=== PATIENT | male | born 1950 | race Two or more races ===

== ENCOUNTER 2019-05-05 19:58 | Emergency (ER) | payer SELFPAY ==
[~2019-05-05] VITALS: Ht 175.3 cm; Wt 59.0 kg
--- NOTE | 2019-05-05 20:10 | NUR ---
PT [id number] COMPLAINING OF BLOOD IN URINE, PT HAS FONSECA CATHETER. PT STATES THAT HIS FONSECA IS "LEAKING." PT AXO4. RESPIRATIONS EVEN AND UNLABORED. PENDING EVAL FROM DEV [facility]AN[facility]. Addendum: 05/05/19 at 2030 by MARILYN PT STATES THE REASON FOR HIS FONSECA IS BECAUSE HE HAS BEEN "RETAINING WATER".
--- NOTE | 2019-05-05 20:42 | NUR ---
URINE SAMPLE COLLECTED AND SENT TO LAB.
[2019-05-05 20:44] LABS: APPEARANCE,URINE Slightly Cloudy (CLEAR); BILIRUBIN,URINE Negative (NEGATIVE); BLOOD, URINE Large Ery/uL (NEGATIVE); COLOR,URINE Red (YELLOW); KETONES,URINE Negative (NEGATIVE); LEUKOCYTE ESTERASE ,URINE Small (NEGATIVE); NITRITE, URINE Negative (NEGATIVE); PH,URINE 7.5 (5.0-8.0); PROTEIN,URINE >=300 mg/dl (NEGATIVE); UGLUCOSE 100 MG/DL mg/dL (NEGATIVE); UROBILINOGEN,URINE 0.2 EU/dL (0.2)
[2019-05-05 20:48] LABS: RBC,URINE TOO NUMEROUS TO COUN /HPF (0-2)
[2019-05-05 20:49] LABS: BACTERIA,URINE Rare /HPF (None Seen); SQUAMOUS EPITHELIAL CELL,UR Rare /HPF (None Seen); URINE AMORPHOUS PHOSPHATES Few /HPF (None Seen)
--- NOTE | 2019-05-05 21:26 | NUR ---
Patient given written and verbal discharge instructions. Patient verbalizes understanding of instructions. Patient is ambulatory with steady gait. Refuses offer of jail placement. Patient given list of available shelters in surrounding area.
--- NOTE | 2019-05-05 21:26 | NUR ---
Uli downs in ED - 05/05/19 at 2128 by MARILYN Patient discharged to home in stable condition. Written and verbal after care instructions given. Patient verbalizes understanding of instruction. PT AMBULATORY WITH STEADY GAIT.
[2019-05-05 21:27] VITALS: BP 127/88
== END 2019-05-05 21:28 | disposition home or self-care (01) ==
LOC: ER 20:00
DX: T83.018A Breakdown (mechanical) of other urinary catheter, initial encounter (principal); R31.9 Hematuria, unspecified; I10 Essential (primary) hypertension; Z85.46 Personal history of malignant neoplasm of prostate; Z98.890 Other specified postprocedural states; Z88.8 Allergy status to other drugs, medicaments and biological substances
CPT/HCPCS: 81000-TC; 87086-TC

== ENCOUNTER 2019-09-06 13:36 | Inpatient (IN) | payer MEDICAID ==
[~2019-09-06] VITALS: Ht 175.3 cm; Wt 60.8 kg
--- NOTE | 2019-09-06 14:05 | NUR ---
RN OPENING NOTES PT BROUGHT IN BY AMBULANCE. PT IS A POOR HISTORIAN. PT STATING HIS RIGHT KNEE IS HURTING AND WOULD LIKE SOME WATER. PT HAS A FONSECA STATES HE HAD IT PUT IN WHEN HE WENT TO [facility]. PT HAS A LEFT AV SHUNT. PT HAS AN 18 GAUGE RIGHT AC. WILL CONTINUE TO MONITOR.
[2019-09-06] MEDS ORDERED: Z GUARD REMEDY 2 OZ OINT TP PRN (14:30)
[2019-09-06] MEDS ORDERED: MAGNESIUM HYDROXIDE 30 ML UDC PO PRN (14:30)
[2019-09-06] MEDS ORDERED: ZOLPIDEM TARTRATE 5 MG TABLET PO PRN (14:30)
[2019-09-06] MEDS ORDERED: MAG HYDROX/AL HYDROX/SIMETH 30 ML UDC PO PRN (14:30)
[2019-09-06] MEDS ORDERED: ACETAMINOPHEN 325 MG TABLET PO PRN (14:30)
[2019-09-06] MEDS ORDERED: HYDROCODONE/APAP 5/325MG 1 EACH TABLET PO PRN (14:30)
[2019-09-06] MEDS ORDERED: ONDANSETRON HCL/PF 4 MG/2 ML VIAL IVP PRN (14:30)
[2019-09-06 14:55] VITALS: BP 155/90
[2019-09-06 15:48] LABS: BASOPHILS % (AUTO) 0.8 % (0.0-2.0); EOSINOPHILS % (AUTO) 2.2 % (0.0-6.0); HEMATOCRIT 39 % (39-51); HEMOGLOBIN 12.4 g/dL (13.5-17.5); LYMPHOCYTES % (AUTO) 32.2 % (20.0-44.0); MEAN CORPUSCULAR HGB CONC 32 g/dl (31.0-36.0); MEAN CORPUSCULAR VOLUME 97 fL (80-96); MONOCYTES # (AUTO) 0.7 /CMM (0.1-1.30); MONOCYTES % (AUTO) 10.2 % (2.0-12.0); NEUTROPHILS # (AUTO) 3.5 /CMM (1.8-8.9); NEUTROPHILS % (AUTO) 54.6 % (43.0-81.0); PLATELET COUNT (AUTO) 165 /CMM (150-450); RED BLOOD CELL COUNT(AUTO) 4.05 MIL/uL (4.5-6.0); WHITE BLOOD COUNT (AUTO) 6.3 K/uL (4.3-11.0)
[2019-09-06 16:00] VITALS: BP 140/68
[2019-09-06] MEDS ORDERED: OLAN20TA3 PO (16:42)
[2019-09-06 16:49] LABS: ALANINE AMINOTRANSFERASE 14 U/L (12-78); ALBUMIN 3.5 g/dL (3.4-5.0); ALKALINE PHOSPHATASE 336 U/L (46-116); ASPARTATE AMINOTRANSFERASE 51 U/L (15-37); BILIRUBIN,TOTAL 0.3 mg/dL (0.2-1.0); CALCIUM, SERUM 7.9 mg/dL (8.5-10.1); CARBON DIOXIDE 13 mmol/L (21-32); CHLORIDE 111 mmol/L (98-107); CREATININE 7.3 mg/dL (0.6-1.3); GLUCOSE 89 mg/dL (74-106); POTASSIUM 4.7 mmol/L (3.5-5.1); SODIUM SERUM 139 mmol/L (136-145); TOTAL PROTEIN, SERUM 7.6 g/dL (6.4-8.2)
[2019-09-06 17:11] LABS: UREA NITROGEN, BLOOD 82 mg/dL (7-18)
--- NOTE | 2019-09-06 19:01 | NUR ---
PT LEFT AMA. SIGNED PAPERWORK AND REMOVED IV HIMSELF. PT WALKED OUT OF UNIT. PT WAS EXPLAINED THE RISKS OF LEAVING AMA.HE STATED THAT WE WERE NOT DOING ANYTHING FOR HIM AND IS LEAVING NOW.
== END 2019-09-06 18:49 | disposition left against medical advice (07) | DRG 203 ==
LOC: TELE1 13:36
PROVIDERS: ADMIT Student in an Organized Health Care Education/Training Program; ATTEND Student in an Organized Health Care Education/Training Program
PROC: 5A1D70Z Performance of Urinary Filtration, Intermittent, Less than 6 Hours Per Day (ICD-10-PCS; principal; 2019-09-06)
DX: M94.0 Chondrocostal junction syndrome [Tietze] (principal); I12.0 Hypertensive chronic kidney disease with stage 5 chronic kidney disease or end stage renal disease; N18.6 End stage renal disease; F17.210 Nicotine dependence, cigarettes, uncomplicated; Z59.0 Homelessness; Z99.2 Dependence on renal dialysis; Z91.19 Patient's noncompliance with other medical treatment and regimen; M25.561 Pain in right knee; R33.9 Retention of urine, unspecified
CPT/HCPCS: 36415; 80053-TC; 84484-TC; 85025-TC; 93307-TC; G0378

== ENCOUNTER 2019-11-17 01:38 | Inpatient (IN) | payer MEDICAID ==
[~2019-11-17] VITALS: Ht 172.7 cm; Wt 68.9 kg
[~2019-11-17 01:38] MED LIST: OLAN20TA3 PO
--- NOTE | 2019-11-17 12:10 | NUR ---
RN ADMITTING NOTES ADMITTED A 69 YEARS OLD, M, TO UNIT VIA GURNEY ACCOMPANIED BY 2 AMBULANCE STAFF. A/O X4. ABLE TO MAKE NEEDS KNOWN. NO COMPLAIN OF PAIN OR DISCOMFORT AT THIS TIME. PATIENT ORIENTED TO UNIT, ROOM AND STAFF. ON ROOM AIR, BREATHING EVEN AND UNLABORED. V/S TAKEN AND RECORDED. PHYSICAL ASSESSMENT WAS DONE AND PICTURES FILED ON CHART. LUNGS CLEAR ON AUSCULTATION. IV ACCESS ON R HAND #20 AND RIGHT FA# 22, PATENT AND INTACT. FONSECA CATHETER IN PLACE, DRAINING CLEAR YELLOW URINE. AV SHUNT ON REN WITH (+) BRUIT AND THRILL. SAFETY MEASURES IN PLACE, BED PLACED IN LOWEST LOCKED POSITION WITH SIDE RAILS UP X2. CALL LIGHT PLACED WITHIN EASY REACH. WILL CONTINUE TO MONITOR.
[2019-11-17 16:00] VITALS: BP 152/86
--- NOTE | 2019-11-17 16:00 | NUR ---
RN NOTES DIALYSIS: RECEIVED A CALL FROM [facility] THAT THEY WERE ABLE TO FIND PATIENT A CHAIR FOR DIALYSIS. IT IS ON [address]. [place]: [id number] [place], [id number]. [phone]. WEDNESDAY, WEDNESDAY AND WEDNESDAY. FIRST APPOINTMENT IS ON Wednesday11/20/19. PATIENT NEEDS TO BE THERE @03:00 AM.
--- NOTE | 2019-11-17 18:00 | NUR ---
RN NOTES DIALYSIS NURSE ON UNIT AND ABOUT TO DO HD ON THE ROOM, CONSENT SIGNED, NO SIGNS OF DISTRESS NOTED. WILL CONTINUE TO MONITOR.
[2019-11-17 18:27] LABS: BASOPHILS % (AUTO) 0.8 % (0.0-2.0); EOSINOPHILS % (AUTO) 1.6 % (0.0-6.0); HEMATOCRIT 23 % (39-51); HEMOGLOBIN 7.4 g/dL (13.5-17.5); LYMPHOCYTES # (AUTO) 1.5 /CMM (0.8-4.8); LYMPHOCYTES % (AUTO) 26.9 % (20.0-44.0); MEAN CORPUSCULAR HGB CONC 33 g/dl (31.0-36.0); MEAN CORPUSCULAR VOLUME 93 fL (80-96); MONOCYTES # (AUTO) 0.6 /CMM (0.1-1.30); MONOCYTES % (AUTO) 11.2 % (2.0-12.0); NEUTROPHILS # (AUTO) 3.2 /CMM (1.8-8.9); NEUTROPHILS % (AUTO) 59.5 % (43.0-81.0); PLATELET COUNT (AUTO) 321 /CMM (150-450); RED BLOOD CELL COUNT(AUTO) 2.44 MIL/uL (4.5-6.0); WHITE BLOOD COUNT (AUTO) 5.4 K/uL (4.3-11.0)
--- NOTE | 2019-11-17 18:36 | NUR ---
RN CLOSING NOTES PATIENT IN BED RESTING COMFORTABLY IN MODERATE HIGH BACK REST. A/O X4. DIALYSIS NURSE WITH PATIENT DOING HD. AV SHUNT ON REN. NO SIGNS OF DISTRESS NOTED. IV ACCESS ON RIGHT HAND #20 AND RIGHT JESSICA #22, SL. SAFETY MEASURES IN PLACE, BED IN LOWEST LOCKED POSITION WITH SIDE RAILS UP X2. CALL LIGHT WITHIN REACH. WILL ENDORSE TO TOBACCO WRAPPING MACHINE TENDER NURSE FOR THEODORE. Addendum: 11/17/19 at 2313 by RONNIE TOLLIVER RN HAS F/C INTACT, DRAINING CLEAR YELLOW FLUID
[2019-11-17 18:47] LABS: CALCIUM, SERUM 6.3 mg/dL (8.5-10.1); CREATININE 6.9 mg/dL (0.6-1.3); POTASSIUM 5.9 mmol/L (3.5-5.1)
--- NOTE | 2019-11-17 19:20 | NUR ---
RN OPEN NOTES RECEIVED PATIENT AWAKE IN BED WITH HD NURSE AT BEDSIDE. A/OX4. NO SIGNS OF DISTRESS OR DISCOMFORT. BREATHING EVEN AND UNLABORED. ON TELE MONITOR WITH SR 88 NOTED. IV ACCESS IN R HAND AND RFA, PATENT AND INTACT, NO SIGNS OF REDNESS OR INFILTRATION. HAS REN AV SHUNT, PT CURRENTLY RECEIVING HD. BED IN LOW LOCKED POSITION WITH SIDE RAILS X2. CALL LIGHT WITHIN REACH. WILL CONTINUE TO MONITOR. Addendum: 11/17/19 at 2313 by RONNIE TOLLIVER RN HAS F/C INTACT, DRAINING CLEAR YELLOW FLUID
[2019-11-17 20:00] VITALS: BP 163/90
[2019-11-17] MEDS ORDERED: TEMAZEPAM 15 MG CAPSULE PO PRN (21:00)
[2019-11-17] MEDS ORDERED: MAGNESIUM HYDROXIDE 30 ML UDC PO PRN (21:00)
[2019-11-17] MEDS ORDERED: HYDROCODONE/APAP 5/325MG 1 EACH TABLET PO PRN (21:00)
[2019-11-17] MEDS ORDERED: MORPHINE SULFATE INJ 2 MG/ML DISP.SYRIN IV PRN (21:00)
[2019-11-17] MEDS ORDERED: ONDANSETRON HCL/PF 4 MG/2 ML VIAL IVP PRN (21:00)
[2019-11-17] MEDS ORDERED: MAG HYDROX/AL HYDROX/SIMETH 30 ML UDC PO PRN (21:00)
[2019-11-17] MEDS ORDERED: ACETAMINOPHEN 325 MG TABLET PO PRN (21:00)
[2019-11-17] MEDS ORDERED: Z GUARD REMEDY 2 OZ OINT TP PRN (21:00)
--- NOTE | 2019-11-17 21:05 | NUR ---
RN NOTES HD DONE WITH NO COMPLICATIONS. REN DRESSING C/D/I. BP 169/90 P90. PER HD NURSE 2.5L OUTPUT. WILL CONTINUE TO MONITOR.
[2019-11-17] MEDS ORDERED: SEVE800T8 PO (21:54)
[2019-11-17] MEDS ORDERED: METO25TA6 PO (21:54)
[2019-11-17] MEDS ORDERED: CELE100C PO (21:54)
[2019-11-17] MEDS ORDERED: DEXTROSE 50%-WATER 50 ML DISP.SYRIN IV PRN (22:00)
[2019-11-17] MEDS: INSULIN REGULAR, HUMAN 100 UNIT/ML 3 ML VIAL SQ PRN (22:54)
[2019-11-17] MEDS: BLOOD SUGAR DIAGNOSTIC 1 EACH STRIP IN SCH (22:54)
[2019-11-17] MEDS: OLANZAPINE 10 MG TABLET PO SCH (22:54)
[2019-11-18] VITALS: BP 125/64
[2019-11-18 04:00] VITALS: BP 164/86
[2019-11-18] MEDS: BLOOD SUGAR DIAGNOSTIC 1 EACH STRIP IN SCH ×4 (06:34→21:39)
--- NOTE | 2019-11-18 06:56 | NUR ---
RN CLOSING NOTES PATIENT RESTING COMFORTABLY IN BED, EASILY AROUSABLE. A/OX3. NO SIGNS OF DISTRESS OR DISCOMFORT. BREATHING EVEN AND UNLABORED. ON TELE MONITOR WITH SR 97 NOTED. IV ACCESS IN R HAND AND RFA, PATENT AND INTACT, NO SIGNS OF REDNESS OR INFILTRATION. HAS REN AV SHUNT + BRUIT AND THRILL DRESSING C/D/I. ALL NEEDS MET. NO SIGNIFICANT CHANGES THROUGH THE NIGHT. BED IN LOW LOCKED POSITION WITH SIDE RAILS X2. CALL LIGHT WITHIN REACH. WILL ENDORSE TO AM SHIFT FOR THE[place]ORE. Addendum: 11/18/19 at 0708 by RONNIE TOLLIVER RN HAS F/C INTACT DRAINING CLEAR YELLOW FLUID.
--- NOTE | 2019-11-18 07:36 | NUR ---
RN OPENING NOTES RECEIVED PATIENT IN BED RESTING COMFORTABLY IN MODERATE HIGH BACK REST, EASILY AROUSABLE. A/OX3. NO SIGNS OF DISTRESS NOTED AT THIS TIME. BREATHING EVEN AND UNLABORED. ON TELE MONITOR WITH SR 90'S NOTED. IV ACCESS IN R HAND AND RFA, PATENT AND INTACT, NO SIGNS OF REDNESS OR INFILTRATION. HAS REN AV SHUNT + BRUIT AND THRILL DRESSING C/D/I. SAFETY MEASURES IN PLACE. BED IN LOW LOCKED POSITION WITH SIDE RAILS X2. CALL LIGHT WITHIN REACH. WILL CONTINUE TO MONITOR.
[2019-11-18 07:37] LABS: BASOPHILS % (AUTO) 0.7 % (0.0-2.0); EOSINOPHILS % (AUTO) 1.6 % (0.0-6.0); HEMATOCRIT 25 % (39-51); HEMOGLOBIN 8.1 g/dL (13.5-17.5); LYMPHOCYTES # (AUTO) 1.7 /CMM (0.8-4.8); LYMPHOCYTES % (AUTO) 29.5 % (20.0-44.0); MEAN CORPUSCULAR HGB CONC 33 g/dl (31.0-36.0); MEAN CORPUSCULAR VOLUME 93 fL (80-96); MONOCYTES # (AUTO) 0.8 /CMM (0.1-1.30); NEUTROPHILS # (AUTO) 3.1 /CMM (1.8-8.9); NEUTROPHILS % (AUTO) 54.2 % (43.0-81.0); PLATELET COUNT (AUTO) 326 /CMM (150-450); RED BLOOD CELL COUNT(AUTO) 2.67 MIL/uL (4.5-6.0); WHITE BLOOD COUNT (AUTO) 5.7 K/uL (4.3-11.0)
[2019-11-18 07:41] LABS: CALCIUM, SERUM 7.2 mg/dL (8.5-10.1); CREATININE 4.6 mg/dL (0.6-1.3); PHOSPHORUS 4.3 mg/dL (2.5-4.9); POTASSIUM 4.7 mmol/L (3.5-5.1)
[2019-11-18 08:00] VITALS: BP 159/86
[2019-11-18] MEDS: METOPROLOL TARTRATE 25 MG TABLET PO SCH ×3 (08:10→17:05)
[2019-11-18] MEDS: CELECOXIB 100 MG CAPSULE PO SCH ×2 (08:10→17:05)
[2019-11-18] MEDS: SEVELAMER CARBONATE 800 MG TABLET PO SCH ×3 (08:10→17:08)
--- NOTE | 2019-11-18 11:24 | NUR ---
RN NOTES SEEN AND EXAMINED BY YASEMIN ANDINO. NO NEW ORDERS AT THIS TIME. F/U REGARDING DUPLEX VENOUS ON EXT. CALLED US, NO ANSWER LEFT A MESSAGE. WILL F/U.
[2019-11-18] MEDS: INSULIN REGULAR, HUMAN 100 UNIT/ML 3 ML VIAL SQ PRN (12:01)
[2019-11-18 16:00] VITALS: BP 142/98
--- NOTE | 2019-11-18 18:34 | NUR ---
RN OPENING NOTES PATIENT IN BED RESTING COMFORTABLY IN MODERATE HIGH BACK REST, EASILY AROUSABLE. A/OX3. NO SIGNS OF DISTRESS NOTED THROUGHOUT THE SHIFT. BREATHING EVEN AND UNLABORED. IV ACCESS IN R HAND AND RFA, PATENT AND INTACT, NO SIGNS OF REDNESS OR INFILTRATION. HAS REN AV SHUNT + BRUIT AND THRILL DRESSING C/D/I. F/C INTACT, DRAINING WITH CLEAR YELLOW URINE. SAFETY MEASURES IN PLACE. BED IN LOW LOCKED POSITION WITH SIDE RAILS X2. CALL LIGHT WITHIN REACH. WILL ENDORSE TO MICA SPLITTER NURSE FOR THEODORE. Addendum: 11/18/19 at 1835 by SON PERALTA RN RN CLOSING NOTES
--- NOTE | 2019-11-18 19:10 | NUR ---
MS RN NOTES RECEIVED PT IN BED AWAKE AND ABLE TO MAKE NEEDS KNOWN. PT A/O X3. RESPIRATIONS EVEN AND UNLABORED WITH NO S/S OF ACUTE DISTRESS OR SOB NOTED. PT NOTED WITH IV IN RHAND #20 AND RFA #22, PATENT AND INTACT AND SL. PT ALSO NOTED WITH REN AV SHUNT. PT NOTED WITH F/C DRAINING WELL. NO COMPLAINTS OF PAIN AT THIS TIME. SAFETY MEASURES IN PLACE WITH BED IN LOWEST LOCKED POSITION WITH SIDE RAILS UP X2. CALL LIGHT WITHIN REACH. WILL CONTINUE TO MONITOR.
[2019-11-18 20:15] VITALS: BP 132/83
[2019-11-18] MEDS: OLANZAPINE 10 MG TABLET PO SCH (21:39)
[2019-11-19 06:21] LABS: BASOPHILS % (AUTO) 0.7 % (0.0-2.0); EOSINOPHILS % (AUTO) 1.8 % (0.0-6.0); HEMATOCRIT 24 % (39-51); HEMOGLOBIN 7.9 g/dL (13.5-17.5); LYMPHOCYTES # (AUTO) 1.8 /CMM (0.8-4.8); MEAN CORPUSCULAR HGB CONC 32 g/dl (31.0-36.0); MEAN CORPUSCULAR VOLUME 93 fL (80-96); MONOCYTES # (AUTO) 0.7 /CMM (0.1-1.30); MONOCYTES % (AUTO) 11.8 % (2.0-12.0); NEUTROPHILS # (AUTO) 3.5 /CMM (1.8-8.9); NEUTROPHILS % (AUTO) 56.7 % (43.0-81.0); PLATELET COUNT (AUTO) 296 /CMM (150-450); RED BLOOD CELL COUNT(AUTO) 2.63 MIL/uL (4.5-6.0); WHITE BLOOD COUNT (AUTO) 6.1 K/uL (4.3-11.0)
[2019-11-19] MEDS: BLOOD SUGAR DIAGNOSTIC 1 EACH STRIP IN SCH ×2 (06:41→11:58)
[2019-11-19 06:44] LABS: CALCIUM, SERUM 6.3 mg/dL (8.5-10.1); CREATININE 5.4 mg/dL (0.6-1.3); PHOSPHORUS 4.7 mg/dL (2.5-4.9)
--- NOTE | 2019-11-19 06:44 | NUR ---
MS RN NOTES PT IN BED AWAKE AND ABLE TO MAKE NEEDS KNOWN. PT A/O X3. RESPIRATIONS EVEN AND UNLABORED WITH NO S/S OF ACUTE DISTRESS OR SOB NOTED THROUHGOUT SHIFT. PT NOTED WITH IV IN RHAND #20 AND RFA #22, PATENT AND INTACT AND SL. PT ALSO NOTED WITH REN AV SHUNT. PT NOTED WITH F/C DRAINING WELL. NO COMPLAINTS OF PAIN AT THIS TIME. SAFETY MEASURES IN PLACE WITH BED IN LOWEST LOCKED POSITION WITH SIDE RAILS UP X2. CALL LIGHT WITHIN REACH. WILL ENDORSE TO ONCOMING NURSE FOR [place].
--- NOTE | 2019-11-19 07:18 | NUR ---
MS RN OPENING NOTES RECEIVED PATIENT SITTING ON WHEELCHAIR, A/O X3. ABLE TO MAKE NEEDS KNOWN. NO S/S OF ACUTE DISTRESS NOTED AT THIS TIME. IV IN RIGHT HAND #20 AND RFA #22, PATENT AND INTACT. NOTED WITH REN AV SHUNT WITH (+) BRUIT AND THRILL. NOTED WITH F/C DRAINING WELL. NO COMPLAINTS OF PAIN AT THIS TIME. SAFETY MEASURES IN PLACE WITH BED IN LOWEST LOCKED POSITION WITH SIDE RAILS UP X2. CALL LIGHT WITHIN REACH. WILL CONTINUE TO MONITOR.
[2019-11-19 08:00] VITALS: BP 151/90
[2019-11-19] MEDS: METOPROLOL TARTRATE 25 MG TABLET PO SCH ×2 (08:24→12:16)
[2019-11-19] MEDS: CELECOXIB 100 MG CAPSULE PO SCH (08:24)
[2019-11-19] MEDS: SEVELAMER CARBONATE 800 MG TABLET PO SCH ×2 (08:24→12:05)
[2019-11-19 16:00] VITALS: BP 150/82
--- NOTE | 2019-11-19 17:10 | NUR ---
RN DISCHARGED NOTES PATIENT DISCHARGED IN STABLE CONDITION. A/0 X 3. ABLE TO MAKE NEEDS KNOWN. V/S TAKEN, STABLE AND RECORDED. PATIENTS IV REMOVED AND APPLIED PRESSURE DRESSINGS. TOOK PICTURES OF SKIN ISSUES AND FILED ON CHART. NAME ARM BAND REMOVED. DISCHARGE WITH F/C INTACT AND DRAINING WELL WITH CLEAR YELLOW URINE. ALL BELONGINGS CHECKED AND SIGNED. HEALTH TEACHINGS/DISCHARGED INSTRUCTIONS GIVEN AND VERBALIZED UNDERSTANDING. PATIENT LEFT UNIT VIA WHEELCHAIR WITH AMBULANCE STAFF. NO SIGNS OF DISTRESS NOTED. CHARGE NURSE AWARE OF DISCHARGED.
== END 2019-11-19 18:00 | disposition home or self-care (01) | DRG 425 ==
LOC: TELE 11:37 → MED 11-18 09:42
PROVIDERS: ADMIT Nurse Practitioner Acute Care; ATTEND Nurse Practitioner Acute Care
PROC: 5A1D70Z Performance of Urinary Filtration, Intermittent, Less than 6 Hours Per Day (ICD-10-PCS; principal; 2019-11-17)
DX: E87.5 Hyperkalemia (principal); I12.0 Hypertensive chronic kidney disease with stage 5 chronic kidney disease or end stage renal disease; C61 Malignant neoplasm of prostate; E83.51 Hypocalcemia; N31.9 Neuromuscular dysfunction of bladder, unspecified; D63.8 Anemia in other chronic diseases classified elsewhere; G89.29 Other chronic pain; K70.30 Alcoholic cirrhosis of liver without ascites; Z99.2 Dependence on renal dialysis; N18.6 End stage renal disease; F17.210 Nicotine dependence, cigarettes, uncomplicated; Z91.19 Patient's noncompliance with other medical treatment and regimen; F15.10 Other stimulant abuse, uncomplicated; Z71.6 Tobacco abuse counseling; Z86.19 Personal history of other infectious and parasitic diseases
CPT/HCPCS: 36415; 80048-TC; 80061-TC; 82962-TC; 83735-TC; 84100-TC; 85025-TC; 87081-TC; 93971-TC; 97116-TC; 97530-TC; G0378; J1815